=== PATIENT | female | born 1945 | race Caucasian/White ===

== ENCOUNTER 2016-08-04 15:06 | Emergency (ER) | payer MEDICARE, OTHER ==
[~2016-08-04 15:06] MED LIST: AMBIEN 10MG10 MG PO; AMITIZA24 MC1 PO; AMLODIPINE5 MG PO; CALCIUM PO; CHILDREN'S ASPI81 M1 PO; CHLOR-A-TAB4 MG PO; COLACE100 M1 PO; CYMBALTA60 MG PO; D-1000 185 MG-11 TAB PO; FLEXERIL10 MG PO; FLONASE ALLERG9.9 ML NAS; FLONASE ALLERG9.9 ML NS; FOSAMAX 70MG TA70 MG PO; IPRATROPIUM BROM3 M1 IH; LEVAQUIN 5500 MG/TA1 PO; LEVOTHYROXIN0.088 MG PO; LIORESAL 1010 MG/TAB PO; LOPRESSOR 550 MG/TAB PO; LYRICA50 MG PO; METFORMIN500 MG PO; NORCO 325 MG-7.1 TA1 PO; NORCO 325 MG-7.1 TAB PO; PERFOROMIS20 MCG/2 M INH; PREDNISONE10 M1 PO; PREDNISONE10 MG PO; PREDNISONE20 M1 PO; PREDNISONE20 MG PO; PROVENTIL0.09 MG/A1 IH; REQUIP 0.5MG0.5 MG PO; REQUIP0.25 MG PO; REQUIP5 MG PO; ROPINIROLE HYD0.5 MG PO; RT SPIRIVA INH18 MCG IH; S LAXATIVE PO; SINGULAIR10 MG PO; THE MEDICINE SH PO; TOPAMAX25 MG PO; TOPROL XL 25MG25 MG PO; ULTRAM50 M1 PO; VENLAFAXINE75 MG PO; VIBRAMYCIN100 MG PO; VITAMIN C PURE500 M1 PO; VITAMIN D1000 IU PO; XANAX0.25 M1 PO; XANAX0.25 MG PO; XARELTO20 MG PO; ZITHROMAX Z PA250 MG PO; ZOLPIDEM5 MG PO
[2016-08-04] MEDS ORDERED: AMBIEN10 MG PO (15:15)
[2016-08-04] MEDS ORDERED: XARELTO20 MG PO (15:16)
[2016-08-04] MEDS ORDERED: REQUIP 1MG T1 MG/TAB (15:20)
[2016-08-04] MEDS ORDERED: PERFOROMIS20 MCG/2 M IH (15:23)
[2016-08-04] MEDS ORDERED: PULMICORT0.5 MG/2 M IH (15:24)
[2016-08-04] MEDS ORDERED: FLINTSTONES W/I1 CTB PO (15:27)
[2016-08-04] MEDS ORDERED: OVEGA-3 SOFTGE1 EAC1 PO (15:31)
[2016-08-04] MEDS ORDERED: VITAMIN D31000 I1 PO (15:33)
[2016-08-04] MEDS ORDERED: DILTIAZEM 12HR120 MG PO (16:46)
[2016-08-04] MEDS ORDERED: DURAGESIC25 MCG/PAT (17:02)
[2016-11-06] MEDS ORDERED: BACTROBAN15 GM TOP (11:44)
[2016-11-06] MEDS ORDERED: GAS RELIEF80 MG PO (11:44)
[2016-11-06] MEDS ORDERED: ALBUTEROL2.5 MG/3 M IH (12:06)
[2016-11-06] MEDS ORDERED: IPRATROPIUM BROM3 M1 IH (12:07)
[2016-11-06] MEDS ORDERED: HEARTBURN RELI150 MG PO (12:08)
[2016-11-06] MEDS ORDERED: REQUIP 0.5MG0.5 MG PO (12:10)
[2016-11-06] MEDS ORDERED: FLUTICASON0.05 MG/AC NAS (12:10)
[2016-11-06] MEDS ORDERED: ASPIR LOW81 MG PO (12:11)
[2016-11-06] MEDS ORDERED: LOPRESSOR 225 MG/TAB PO (12:12)
== END 2016-08-04 17:03 | disposition home or self-care (01) ==
LOC: ED 15:06
DX: R06.00 Dyspnea, unspecified (principal); I48.91 Unspecified atrial fibrillation; J43.9 Emphysema, unspecified; I27.2 Other secondary pulmonary hypertension; Z79.01 Long term (current) use of anticoagulants; Z87.891 Personal history of nicotine dependence

== ENCOUNTER 2016-08-10 01:15 | Emergency (ER) | payer MEDICARE, OTHER ==
[~2016-08-10 01:15] MED LIST changes: +AMBIEN10 MG PO; +DILTIAZEM 12HR120 MG PO; +DURAGESIC25 MCG/PAT; +FLINTSTONES W/I1 CTB PO; +OVEGA-3 SOFTGE1 EAC1 PO; +PERFOROMIS20 MCG/2 M IH; +PULMICORT0.5 MG/2 M IH; +REQUIP 1MG T1 MG/TAB; +VITAMIN D31000 I1 PO
[2016-08-10] MEDS ORDERED: MIRALAX17 GM PO (01:34)
[2016-11-06] MEDS ORDERED: BACTROBAN15 GM TOP (11:44)
[2016-11-06] MEDS ORDERED: GAS RELIEF80 MG PO (11:44)
[2016-11-06] MEDS ORDERED: ALBUTEROL2.5 MG/3 M IH (12:06)
[2016-11-06] MEDS ORDERED: IPRATROPIUM BROM3 M1 IH (12:07)
[2016-11-06] MEDS ORDERED: HEARTBURN RELI150 MG PO (12:08)
[2016-11-06] MEDS ORDERED: REQUIP 0.5MG0.5 MG PO (12:10)
[2016-11-06] MEDS ORDERED: FLUTICASON0.05 MG/AC NAS (12:10)
[2016-11-06] MEDS ORDERED: ASPIR LOW81 MG PO (12:11)
[2016-11-06] MEDS ORDERED: LOPRESSOR 225 MG/TAB PO (12:12)
== END 2016-08-10 03:16 | disposition home or self-care (01) ==
LOC: ED 01:15
DX: S00.03XA Contusion of scalp, initial encounter (principal); Z79.01 Long term (current) use of anticoagulants; W18.00XA Striking against unspecified object with subsequent fall, initial encounter; Y92.010 Kitchen of single-family (private) house as the place of occurrence of the external cause

== ENCOUNTER 2016-08-29 08:48 | Emergency (ER) | payer MEDICARE, OTHER ==
[~2016-08-29 08:48] MED LIST changes: +MIRALAX17 GM PO
[2016-08-29] MEDS ORDERED: REQUIP XL2 MG PO (09:03)
[2016-08-29 10:04] VITALS: BP 137/78
[2016-08-29] MEDS ORDERED: MORPHINE SULFAT15 M7 PO (11:05)
[2016-11-06] MEDS ORDERED: BACTROBAN15 GM TOP (11:44)
[2016-11-06] MEDS ORDERED: GAS RELIEF80 MG PO (11:44)
[2016-11-06] MEDS ORDERED: ALBUTEROL2.5 MG/3 M IH (12:06)
[2016-11-06] MEDS ORDERED: IPRATROPIUM BROM3 M1 IH (12:07)
[2016-11-06] MEDS ORDERED: HEARTBURN RELI150 MG PO (12:08)
[2016-11-06] MEDS ORDERED: FLUTICASON0.05 MG/AC NAS (12:10)
[2016-11-06] MEDS ORDERED: REQUIP 0.5MG0.5 MG PO (12:10)
[2016-11-06] MEDS ORDERED: ASPIR LOW81 MG PO (12:11)
[2016-11-06] MEDS ORDERED: LOPRESSOR 225 MG/TAB PO (12:12)
== END 2016-08-29 11:50 | disposition home or self-care (01) ==
LOC: ED 08:48
DX: G89.29 Other chronic pain (principal); G35 Multiple sclerosis; M35.3 Polymyalgia rheumatica; Z87.891 Personal history of nicotine dependence
CPT/HCPCS: J2270

== ENCOUNTER 2016-09-04 13:04 | Outpatient (RCR) | payer MEDICARE, OTHER ==
[~2016-09-04 13:04] MED LIST changes: +MORPHINE SULFAT15 M7 PO; +REQUIP XL2 MG PO
[2016-11-06] MEDS ORDERED: BACTROBAN15 GM TOP (11:44)
[2016-11-06] MEDS ORDERED: GAS RELIEF80 MG PO (11:44)
[2016-11-06] MEDS ORDERED: ALBUTEROL2.5 MG/3 M IH (12:06)
[2016-11-06] MEDS ORDERED: IPRATROPIUM BROM3 M1 IH (12:07)
[2016-11-06] MEDS ORDERED: HEARTBURN RELI150 MG PO (12:08)
[2016-11-06] MEDS ORDERED: FLUTICASON0.05 MG/AC NAS (12:10)
[2016-11-06] MEDS ORDERED: REQUIP 0.5MG0.5 MG PO (12:10)
[2016-11-06] MEDS ORDERED: ASPIR LOW81 MG PO (12:11)
[2016-11-06] MEDS ORDERED: LOPRESSOR 225 MG/TAB PO (12:12)
== END 2016-10-03 09:53 | disposition home or self-care (01) ==
LOC: PT 13:04
DX: M54.6 Pain in thoracic spine (principal); M47.814 Spondylosis without myelopathy or radiculopathy, thoracic region

== ENCOUNTER → 2016-10-03 | Outpatient (CLI) | payer MEDICARE, OTHER ==
[~2016-10-03] MED LIST changes: +ALBUTEROL2.5 MG/3 M IH; +AMLODIPINE BESY10 MG PO; +ASPIR LOW81 MG PO; +ATROVENT I0.2 MG/1 M IH; +BACTROBAN15 GM TOP; +CELLCEPT 250MG250 MG PO; +COREG 3.123.125 MG/T PO; +FLUTICASON0.05 MG/AC NAS; +GAS RELIEF80 MG PO; +GOOD SENSE OMEP20 MG PO; +HEARTBURN RELI150 MG PO; +KEFLEX250 M1 PO; +LASIX40 M1 PO; +LOPRESSOR 225 MG/TAB PO; +NATURE'S BLEND400 I1; +NEPHROCAPS SOFTG1 MG PO; +SENSIPAR30 M1 PO; +ZOCOR5 MG PO; +ZOLOFT 50MG50 MG PO
== END ==
LOC: LAB 11:40
DX: B37.0 Candidal stomatitis (principal)

== ENCOUNTER → 2016-10-11 | Outpatient (CLI) | payer MEDICARE, OTHER | LOC: LAB 13:05 | DX: E09.9 Drug or chemical induced diabetes mellitus without complications (principal) ==

== ENCOUNTER → 2016-10-24 | Outpatient (CLI) | payer MEDICARE, OTHER | LOC: RAD 13:30 | DX: I48.2 Chronic atrial fibrillation (principal) ==

== ENCOUNTER → 2016-11-06 | Outpatient (CLI) | payer MEDICARE, OTHER ==
[2016-11-06 10:40] VITALS: BP 159/89
== END ==
LOC: AMSURD 10:12
DX: E03.9 Hypothyroidism, unspecified (principal); I48.2 Chronic atrial fibrillation; R53.81 Other malaise; R10.11 Right upper quadrant pain

== ENCOUNTER → 2016-12-02 | Outpatient (CLI) | payer MEDICARE, OTHER ==
[2016-11-06 10:40] VITALS: BP 159/89
== END ==
LOC: RAD 11-25 13:11
DX: R31.9 Hematuria, unspecified (principal); G35 Multiple sclerosis
CPT/HCPCS: A9579

== ENCOUNTER → 2016-12-28 | Outpatient (CLI) | payer MEDICARE, OTHER ==
[2016-11-06 10:40] VITALS: BP 159/89
== END ==
LOC: LAB 11:26
DX: M79.1 Myalgia (principal); E87.6 Hypokalemia

== ENCOUNTER → 2016-12-30 | Outpatient (CLI) | payer MEDICARE, OTHER ==
[2016-11-06 10:40] VITALS: BP 159/89
== END ==
LOC: LAB 15:02
DX: E87.6 Hypokalemia (principal)

== ENCOUNTER → 2016-12-31 | Day surgery (SDC) | payer MEDICARE, OTHER ==
[2016-11-06 10:40] VITALS: BP 159/89
== END ==
LOC: MSO 12:43
DX: R13.10 Dysphagia, unspecified (principal); K22.2 Esophageal obstruction; K21.9 Gastro-esophageal reflux disease without esophagitis; I10 Essential (primary) hypertension; J44.9 Chronic obstructive pulmonary disease, unspecified; Z87.891 Personal history of nicotine dependence; G47.33 Obstructive sleep apnea (adult) (pediatric); E09.8 Drug or chemical induced diabetes mellitus with unspecified complications; T38.0X5D Adverse effect of glucocorticoids and synthetic analogues, subsequent encounter; K44.9 Diaphragmatic hernia without obstruction or gangrene
CPT/HCPCS: 00740; A4649; J7120

== ENCOUNTER → 2017-01-15 | Outpatient (CLI) | payer MEDICARE, OTHER ==
[2016-11-06 10:40] VITALS: BP 159/89
== END ==
LOC: LAB 15:03
DX: E87.6 Hypokalemia (principal); R10.11 Right upper quadrant pain; N30.00 Acute cystitis without hematuria; B96.1 Klebsiella pneumoniae [K. pneumoniae] as the cause of diseases classified elsewhere

== ENCOUNTER → 2017-01-17 | Outpatient (CLI) | payer MEDICARE, OTHER ==
[2016-11-06 10:40] VITALS: BP 159/89
== END ==
LOC: RAD 08:45
DX: R10.11 Right upper quadrant pain (principal)
CPT/HCPCS: Q9967

== ENCOUNTER → 2017-01-18 | Outpatient (CLI) | payer MEDICARE, OTHER ==
[~2017-01-18] VITALS: Ht 152.4 cm; Wt 65.0 kg
[2017-01-18 18:07] VITALS: BP 123/79
[2017-01-18 21:28] VITALS: BP 142/69
== END ==
LOC: AMSURD 17:46 → RAD 17:46
DX: R10.9 Unspecified abdominal pain (principal); K59.09 Other constipation; N30.00 Acute cystitis without hematuria

== ENCOUNTER 2017-01-20 17:39 | Emergency (ER) | payer MEDICARE, OTHER ==
[~2017-01-20] VITALS: Wt 70.5 kg
[~2017-01-20 17:39] MED LIST changes: -AMLODIPINE BESY10 MG PO; -ATROVENT I0.2 MG/1 M IH; -CELLCEPT 250MG250 MG PO; -COREG 3.123.125 MG/T PO; -GOOD SENSE OMEP20 MG PO; -KEFLEX250 M1 PO; -LASIX40 M1 PO; -NATURE'S BLEND400 I1; -NEPHROCAPS SOFTG1 MG PO; -SENSIPAR30 M1 PO; -ZOCOR5 MG PO; -ZOLOFT 50MG50 MG PO
[2017-01-20] MEDS ORDERED: PREDNISONE20 M1 PO (17:50)
[2017-01-20] MEDS ORDERED: KEFLEX250 M1 PO (17:51)
[2017-01-20 19:36] VITALS: BP 147/73
== END 2017-01-20 19:36 | disposition home or self-care (01) ==
LOC: ED 17:39
DX: M35.3 Polymyalgia rheumatica (principal); G62.9 Polyneuropathy, unspecified; M25.572 Pain in left ankle and joints of left foot; E09.9 Drug or chemical induced diabetes mellitus without complications; T38.0X5A Adverse effect of glucocorticoids and synthetic analogues, initial encounter; Z79.52 Long term (current) use of systemic steroids; Z79.01 Long term (current) use of anticoagulants; G35 Multiple sclerosis

== ENCOUNTER 2017-01-27 15:00 | Outpatient (RCR) | payer MEDICARE, OTHER ==
[~2017-01-27 15:00] MED LIST changes: -AMLODIPINE BESY10 MG PO; -ATROVENT I0.2 MG/1 M IH; -CELLCEPT 250MG250 MG PO; -COREG 3.123.125 MG/T PO; -GOOD SENSE OMEP20 MG PO; -LASIX40 M1 PO; -NATURE'S BLEND400 I1; -NEPHROCAPS SOFTG1 MG PO; -SENSIPAR30 M1 PO; -ZOCOR5 MG PO; -ZOLOFT 50MG50 MG PO
== END 2017-01-30 15:15 | disposition home or self-care (01) ==
LOC: PT 15:00
DX: M46.1 Sacroiliitis, not elsewhere classified (principal)

== ENCOUNTER → 2017-01-27 | Outpatient (CLI) | payer MEDICARE, OTHER ==
[2017-01-20 19:36] VITALS: BP 147/73
[~2017-01-27] MED LIST changes: +AMLODIPINE BESY10 MG PO; +ATROVENT I0.2 MG/1 M IH; +CELLCEPT 250MG250 MG PO; +COREG 3.123.125 MG/T PO; +GOOD SENSE OMEP20 MG PO; +KEFLEX250 M1 PO; +LASIX40 M1 PO; +NATURE'S BLEND400 I1; +NEPHROCAPS SOFTG1 MG PO; +SENSIPAR30 M1 PO; +ZOCOR5 MG PO; +ZOLOFT 50MG50 MG PO
== END ==
LOC: RAD 11:21
DX: R52 Pain, unspecified (principal); G35 Multiple sclerosis; M48.07 Spinal stenosis, lumbosacral region
CPT/HCPCS: A9579

== ENCOUNTER 2017-02-05 17:33 | Emergency (ER) | payer MEDICARE, OTHER ==
[~2017-02-05] VITALS: Ht 152.4 cm; Wt 70.9 kg
[2017-02-05] MEDS ORDERED: NATURE'S BLEND400 I1 (18:02)
[2017-02-05] MEDS ORDERED: GOOD SENSE OMEP20 MG PO (18:03)
[2017-02-05] MEDS ORDERED: LASIX40 M1 PO (18:04)
[2017-02-05] MEDS ORDERED: CELLCEPT 250MG250 MG PO (18:05)
[2017-02-05] MEDS ORDERED: SENSIPAR30 M1 PO (18:05)
[2017-02-05] MEDS ORDERED: ZOCOR5 MG PO (18:06)
[2017-02-05] MEDS ORDERED: COREG 3.123.125 MG/T PO (18:06)
[2017-02-05] MEDS ORDERED: NEPHROCAPS SOFTG1 MG PO (18:07)
[2017-02-05] MEDS ORDERED: AMLODIPINE BESY10 MG PO (18:07)
[2017-02-05] MEDS ORDERED: ZOLOFT 50MG50 MG PO (18:08)
[2017-02-05] MEDS ORDERED: ATROVENT I0.2 MG/1 M IH (18:18)
[2017-02-05 21:19] VITALS: BP 148/76
== END 2017-02-05 20:47 | disposition home or self-care (01) ==
LOC: ED 17:33
DX: M54.5 Low back pain (principal); Z98.890 Other specified postprocedural states; E11.40 Type 2 diabetes mellitus with diabetic neuropathy, unspecified; J44.9 Chronic obstructive pulmonary disease, unspecified; J45.909 Unspecified asthma, uncomplicated; Z87.311 Personal history of (healed) other pathological fracture
CPT/HCPCS: J1170